=== PATIENT | female | born 1960 | race Caucasian/White ===

== ENCOUNTER → 2023-06-04 09:36 | Outpatient (REF) | payer OTHER, SELFPAY | LOC: RCS 09:36 | PROVIDERS: ATTENDING PHYSICIAN Specialist | DX: Z01.818 Encounter for other preprocedural examination (principal) | CPT/HCPCS: 93005 ==

== ENCOUNTER 2023-08-03 08:45 | Outpatient (RCR) | payer OTHER, SELFPAY | END 2023-08-03 23:59 | disposition home or self-care (01) | LOC: RPT 08:45 | PROVIDERS: ATTENDING PHYSICIAN Specialist; FAMILY PHYSICIAN Family Medicine | DX: Z47.89 Encounter for other orthopedic aftercare (principal); Z73.6 Limitation of activities due to disability; M25.511 Pain in right shoulder | CPT/HCPCS: 97010; 97110; 97140; 97162 ==

== ENCOUNTER 2023-08-31 09:07 | Outpatient (RCR) | payer OTHER, SELFPAY | END 2023-08-31 23:59 | disposition home or self-care (01) | LOC: RPT 09:07 | PROVIDERS: ATTENDING PHYSICIAN Specialist; FAMILY PHYSICIAN Family Medicine | DX: M25.511 Pain in right shoulder (principal); Z98.890 Other specified postprocedural states; Z73.6 Limitation of activities due to disability | CPT/HCPCS: 97010; 97110; 97112; 97140 ==

== ENCOUNTER → 2023-10-31 13:51 | Outpatient (REF) | payer OTHER, SELFPAY | LOC: RAD 13:51 | PROVIDERS: ATTENDING PHYSICIAN Nurse Practitioner Family | DX: R06.02 Shortness of breath (principal) | CPT/HCPCS: 71046 ==

== ENCOUNTER → 2024-02-04 12:58 | Outpatient (REF) | payer OTHER, SELFPAY | LOC: RAD 12:58 | PROVIDERS: ATTENDING PHYSICIAN Nurse Practitioner Family | DX: M25.562 Pain in left knee (principal) | CPT/HCPCS: 73564 ==

== ENCOUNTER 2024-03-25 06:08 | Day surgery (SDC) | payer OTHER, SELFPAY ==
[2024-03-03 10:20] VITALS: BMI 38.1
[2024-03-03 10:53] LABS: % Basophils 0.4 % (0-2); % Eosinophils 3.8 % (0-6); % Immature Granulocytes 0.2 % (0-0.5); % Lymphocytes 31.7 % (20.5-51.1); % Monocytes 10.4 % (1.7-9.3); % Neutrophils 53.5 % (42.2-75.2); Absolute Eosinophils 0.2 10^3/uL (0-0.7); Absolute Lymphocytes 1.6 10^3/uL (1.2-3.4); Absolute Monocytes 0.5 10^3/uL (0.1-0.6); Absolute Neutrophils 2.7 10^3/uL (1.4-6.5); Hematocrit 41.2 % (37.0-47.0); Hemoglobin 13.4 g/dL (12.0-16.0); Mean Corp Hgb Conc. 32.5 g/dL (33.0-37.0); Mean Corpuscular Volume 89.2 fL (81.0-99.0); Mean Platelet Volume 10.4 fL (7.4-10.4); Nucleated Red Blood Cells % 0 %; Platelet Count 246 10^3/uL (130-400); Red Blood Cell Count 4.62 10^6/uL (4.20-5.40)
[2024-03-03 11:16] LABS: Blood Urea Nitrogen 17 mg/dl (7-17); Calcium 9.3 mg/dl (8.4-10.2); Carbon Dioxide 26 mmol/L (22-30); Chloride 105 mmol/L (98-107); Estimated Creatinine Clearance > 125 ml/min; Glucose 84 mg/dl (70-99); Potassium 4.7 mmol/L (3.5-5.1); Sodium 142 mmol/L (135-145); eGFR > 60.00
[2024-03-25] VITALS (7 sets, daily range): BP systolic 152–167; BP diastolic 92–101; BMI 38.1
[2024-03-25] MEDS: NORMOSOL-R/PLASMALYTE-A 1000 IV (12:10)
[2024-03-25] MEDS: CELEBREX 200 MG PO (12:37)
[2024-03-25] MEDS: TYLENOL 1000 MG PO (12:49)
[2024-03-25] MEDS: ROXICODONE 5 MG PO (16:36)
== END 2024-03-25 17:24 | disposition home or self-care (01) ==
LOC: SDS 06:08
PROVIDERS: ATTENDING PHYSICIAN Specialist; FAMILY PHYSICIAN Family Medicine
PROC: 0SQD4ZZ Repair Left Knee Joint, Percutaneous Endoscopic Approach (ICD-10-PCS; 2024-03-25)
DX: S83.242A Other tear of medial meniscus, current injury, left knee, initial encounter (principal); S83.282A Other tear of lateral meniscus, current injury, left knee, initial encounter; X58.XXXA Exposure to other specified factors, initial encounter; M94.262 Chondromalacia, left knee
CPT/HCPCS: 29880; 36415; 80048; 85025; 93005

== ENCOUNTER → 2024-04-11 15:56 | Outpatient (REF) | payer OTHER, SELFPAY | LOC: RAD 15:56 | PROVIDERS: ATTENDING PHYSICIAN Physician Assistant; FAMILY PHYSICIAN Family Medicine | DX: M25.531 Pain in right wrist (principal); M25.532 Pain in left wrist; M54.50 Low back pain, unspecified; M79.641 Pain in right hand; M06.09 Rheumatoid arthritis without rheumatoid factor, multiple sites; M06.4 Inflammatory polyarthropathy; Z11.1 Encounter for screening for respiratory tuberculosis; Z11.59 Encounter for screening for other viral diseases | CPT/HCPCS: 72100 ==